=== PATIENT | female | born 2000 | race African-American/Black ===

== ENCOUNTER 2024-04-19 22:03 | Emergency (ER) | payer OTHER ==
[~2024-04-19] VITALS: Ht 165.1 cm; Wt 56.8 kg
[~2024-04-19 22:03] MED LIST: ALBU17AE27; MOTRIN
[2024-04-19 22:11] VITALS: BP 130/71; PULSE 64; RESP 16; TEMP 98.8; O2SAT 100
[2024-04-19] MEDS ORDERED: HYDR-4072 PO (22:31)
[2024-04-19] MEDS ORDERED: PENI500T2 PO (22:31)
[2024-04-19] MEDS ORDERED: IBUP-1554 PO (22:31)
[2024-04-19] MEDS: CEPHALEXIN MONOHYDRATE 500 MG CAPSULE PO ONE (22:40)
[2024-04-19] MEDS: HYDROCODONE/ACETAMINOPHEN 5-325 MG TABLET PO ONE (22:41)
== END 2024-04-19 22:52 | disposition home or self-care (01) ==
LOC: EMS 22:03
DX: K04.7 Periapical abscess without sinus (principal); J45.909 Unspecified asthma, uncomplicated
CPT/HCPCS: 99283